=== PATIENT | male | born 1970 | race Caucasian/White ===

== ENCOUNTER 2016-06-14 07:45 | Emergency (ER) | payer OTHER ==
[~2016-06-14] VITALS: Ht 185.4 cm; Wt 83.9 kg
[~2016-06-14 07:45] MED LIST: IBUPROFEN800 MG ORAL; ONDANSETRON ODT4 MG ORAL; TAMIFLU75 MG ORAL; ZYRTEC10 MG ORAL
[2016-06-14] MEDS ORDERED: NKM (07:54)
[2016-06-14] MEDS ORDERED: IBUPROFEN800 MG ORAL (08:03)
[2016-06-14] MEDS ORDERED: TAMIFLU75 MG ORAL (08:03)
[2016-06-14 08:08] VITALS: BP 111/71
--- NOTE | 2016-06-14 08:08 | Emergency Room Report ---
History of Present Illness General Chief Complaint: Flu Like Symptoms Source: Patient Present Illness HPI 45YOM walk-in with 2 days of myalgias, body aches, sore throat. Didnt get flu vaccine this year. Multiple coworkers sick. Feels similar to flu like illness he had in 2012. Improved with Tamiflu then. Taking Dayquill/Nyquill with improvement. Doesnt smoke. No other medical problems. Allergies: Coded Allergies: No Known Allergies (Unverified , 01/13/13) Patient History Past Medical History: none Past Surgical History: none Pertinent Family History: none Social History: Denies: alcohol use, drug use, smoking Immunizations: UTD Reviewed Nursing Documentation: PMH: Agreed, PSxH: Agreed Nursing Documentation-PMH Past Medical History: No Stated History Review of Systems All Other Systems: negative except mentioned in HPI Physical Exam Vital Signs Date Time Temp Pulse Resp B/P Pulse Ox O2 Delivery O2 Flow Rate FiO2 06/14/16 07:48 99.9 96 16 104/68 96 Room Air Sp02 EP Interpretation: reviewed, normal General Appearance: normal inspection, well appearing, no apparent distress, alert, GCS 15, non-toxic Head: normocephalic, atraumatic Eyes: bilateral eye EOMI, bilateral eye PERRL ENT: normal ENT inspection, hearing grossly normal, normal voice, TMs + canals normal, uvula midline, moist mucus membranes Neck: normal inspection, full range of motion, supple, no meningismus, no bony tend Respiratory: normal inspection, lungs clear, normal breath sounds, no rhonchi, no respiratory distress, no retraction, no accessory muscle use, no wheezing, speaking full sentences Cardiovascular #1: regular rate, rhythm, no edema Gastrointestinal: normal inspection, normal bowel sounds, non tender, soft, no guarding, no hernia Genitourinary: no CVA tenderness Musculoskeletal: normal inspection, back normal, normal range of motion, Miesha' s Sign negative Neurologic: normal inspection, alert, oriented x3, responsive, territory manager III-XII nml as tested, motor strength/tone normal, speech normal Psychiatric: normal inspection, judgement/insight normal, mood/affect normal Skin: normal inspection, normal color, no rash Lymphatic: normal inspection Medical Decision Making Diagnostic Impression: Primary Impression: Influenza-like symptoms ER Course 45YOM with flu like illness/symptoms. VSS. Afebrile. Exam unremarkable for acute bacterial infection Rx Tamiflu, Rx Ibuprofen PMD followup DC home Last Vital Signs Date Time Temp Pulse Resp B/P Pulse Ox O2 Delivery O2 Flow Rate FiO2 06/14/16 07:58 92 18 Room Air 06/14/16 07:48 99.9 104/68 96 Status: improved Disposition: HOME, SELF-CARE Condition: Improved Scripts Ibuprofen* (MOTRIN*) 800 Mg Tablet 800 MG ORAL THREE TIMES A DAY, #30 TAB 0 Refills Prov: CLEVE RODRIGUEZ M.D. 06/14/16 Oseltamivir Phosphate (Tamiflu) 75 Mg Cap 75 MG ORAL TWICE A DAY, #10 CAP 0 Refills Prov: CLEVE RODRIGUEZ M.D. 06/14/16 Patient Instructions: Pharyngitis, Blvs-py-[id number] Additional Instructions: - Drink plenty of fluids - Take ALL the tamiflu as prescribed - Take ibuprofen up to 3x a day with food as needed for sore throat, body aches CLEVE RODRIGUEZ M.D. Jun 14, 2016 08:08
[2016-06-14 08:14] VITALS: BP 111/71
== END 2016-06-14 08:14 | disposition home or self-care (01) ==
LOC: EMR 08:08
DX: J11.1 Influenza due to unidentified influenza virus with other respiratory manifestations (principal)
CPT/HCPCS: 99284

== ENCOUNTER 2018-09-23 16:32 | Inpatient (IN) | payer OTHER ==
[~2018-09-23] VITALS: Ht 185.4 cm; Wt 83.9 kg
[~2018-09-23 16:32] MED LIST changes: +NKM
--- NOTE | 2018-09-23 16:40 | NUR ---
ED Nurse Note: Patient walked into ED c/o chest pain, burning , 09/04. patient reports he was recently diagnosed with thoracic aneurysm about 1 month ago, awaiting for cardiology refferal by primary doctor. patient is alert wake x4 ambulatory, breathing unlabored and even. patient placed on environmental monitoring specialist.
[2018-09-23] MEDS ORDERED: Isovue-370 150ml vial INJ PRN (16:45)
[2018-09-23 17:02] VITALS: BP 117/68
--- NOTE | 2018-09-23 17:44 | Diagnostic Imaging Report ---
Indication: Chest pain Technique: One view of the chest Comparison: 01/13/2013 Findings: Lungs and pleural spaces are clear. Heart size is normal. Impression: No acute process
--- NOTE | 2018-09-23 18:04 | Emergency Room Report ---
History of Present Illness General Chief Complaint: Chest Pain Source: Medical Record Present Illness HPI 48-year-old male history of thoracic aneurysm 4.5 cm, presents with burning chest pain x1 day, no aggravating or alleviating factors, he does have a history of GERD, he does endorse some nausea, the pain does not radiate to the back, it was gradual in onset, not sudden, no epigastric pain, no diarrhea. patient was worried his aneurysm may have gotten worse or if it burst, patient presents for evaluation. Severity is mild Allergies: Coded Allergies: No Known Allergies (Unverified , 01/13/13) Patient History Past Medical History: see triage record Reviewed Nursing Documentation: PMH: Agreed; PSxH: Agreed Nursing Documentation-PMH Past Medical History: No History, Except For Review of Systems Constitutional: Denies: chills, fever Eye: Denies: blurred vision, double vision ENT: Denies: throat pain, nasal discharge Respiratory: Denies: cough, shortness of breath Cardiovascular: Reports: chest pain; Denies: palpitations Gastrointestinal: Reports: nausea; Denies: abdominal pain, diarrhea, vomiting Genitourinary: Denies: dysuria, pain Musculoskeletal: Denies: back pain, muscle pain Skin: Denies: rash, lesions Neurological: Denies: headache, focal weakness Hematologic/Lymphatic: Denies: easy bleeding, easy bruising All Other Systems: negative except mentioned in HPI Physical Exam Vital Signs Date Time Temp Pulse Resp B/P (MAP) Pulse Ox O2 Delivery O2 Flow Rate FiO2 09/23/18 16:36 98.4 59 18 127/58 (81) 96 Room Air Sp02 EP Interpretation: reviewed, normal General Appearance: well appearing, no apparent distress, alert Head: normocephalic, atraumatic Eyes: bilateral eye PERRL, bilateral eye EOMI ENT: uvula midline, moist mucus membranes Neck: supple, thyroid normal, supple/symm/no masses Respiratory: lungs clear, no respiratory distress, no retraction, no accessory muscle use Cardiovascular #1: normal peripheral pulses, regular rate, rhythm, no edema, no gallop, no murmur Gastrointestinal: non tender, soft, no guarding, no rebound Musculoskeletal: normal inspection Neurologic: alert, oriented x3 Psychiatric: mood/affect normal Skin: no rash, warm/dry Medical Decision Making Diagnostic Impression: Primary Impression: Chest pain ER Course Patient presents with most likely GERD-like symptoms, however we will evaluate to see if his aneurysm has changed, patient is following up with a thoracic specialist to determine if he needs operative management or watchful waiting Aneurysm unchanged, will transfer patient for observation measurement if 4.3 cm no evidence of rupture Spoke with Dr. Gaines, is waiting for the results of the CTA, does not want to admit unless CTA is stable Reeval 7:54 PM Patient with no evidence of worsening aneurysm, could not reach Dr. Gaines Admitted to Dr. Anders for obs for acs rule out, low suspicion for involvement of aneurysm. Laboratory Tests Test 09/23/18 17:40 White Blood Count 5.3 K/UL (4.8-10.8) Red Blood Count 4.63 M/UL (4.70-6.10) L Hemoglobin 14.9 G/DL (14.2-18.0) Hematocrit 41.6 % (42.0-52.0) L Mean Corpuscular Volume 90 FL (80-99) Mean Corpuscular Hemoglobin 32.2 PG (27.0-31.0) H Mean Corpuscular Hemoglobin Concent 35.9 G/DL (32.0-36.0) Red Cell Distribution Width 10.5 % (11.6-14.8) L Platelet Count 178 K/UL (150-450) Mean Platelet Volume 6.9 FL (6.5-10.1) Neutrophils (%) (Auto) 57.3 % (45.0-75.0) Lymphocytes (%) (Auto) 31.1 % (20.0-45.0) Monocytes (%) (Auto) 5.4 % (1.0-10.0) Eosinophils (%) (Auto) 5.8 % (0.0-3.0) H Basophils (%) (Auto) 0.4 % (0.0-2.0) Prothrombin Time 10.1 SEC (9.30-11.50) Prothrombin Time INR 0.9 (0.9-1.1) PTT 27 SEC (23-33) Sodium Level 133 MMOL/L (136-145) L Potassium Level 3.6 MMOL/L (3.5-5.1) Chloride Level 100 MMOL/L (98-107) Carbon Dioxide Level 30 MMOL/L (21-32) Anion Gap 3 mmol/L (5-15) L Blood Urea Nitrogen 12 mg/dL (7-18) Creatinine 1.0 MG/DL (0.55-1.30) Estimate Glomerular Filtration Rate > 60 mL/min (>60) Glucose Level 90 MG/DL (74-106) Calcium Level 9.4 MG/DL (8.5-10.1) Total Bilirubin 0.6 MG/DL (0.2-1.0) Aspartate Amino Transferase (AST) 21 U/L (15-37) Alanine Aminotransferase (ALT) 15 U/L (12-78) Alkaline Phosphatase 35 U/L (46-116) L Total Creatine Kinase 83 U/L (26-308) Creatine Kinase MB 1.2 NG/ML (0.0-3.6) Creatine Kinase MB Relative Index 1.4 Troponin I 0.000 ng/mL (0.000-0.056) Pro-B-Type Natriuretic Peptide 33 pg/mL (0-125) Total Protein 7.7 G/DL (6.4-8.2) Albumin 4.4 G/DL (3.4-5.0) Globulin 3.3 g/dL Albumin/Globulin Ratio 1.3 (1.0-2.7) EKG Diagnostic Results EKG Time: 16:42 EP Interpretation: Sinus bradycardia, rate 56, QTc 418, no acute ST elevations , normal axis Rate: bradycardiac Rhythm: other - Sinus bradycardia ST Segments: no acute changes ASA given to the pt in ED: No Rhythm Strip Diag. Results Rhythm Strip Time: 18:22 EP Interpretation: yes Rate: 59 Rhythm: no PVC's, no ectopy, other - Sinus bradycardia Chest X-Ray Diagnostic Results Chest X-Ray Diagnostic Results : Chest X-Ray Ordered: Yes # of Views/Limited/Complete: 1 View Indication: Chest Pain EP Interpretation: Yes Interpretation: no acute cardiopulmonary disease Impression: No acute disease Electronically Signed by: Balbir Thakur MD CT/MRI/US Diagnostic Results CT/MRI/US Diagnostic Results : Impression CTA thoracic, read by Dr. STOKES NG: Mild fusiform dilatation of the ascending thoracic aorta measuring up to 4.3 cm no dissection Last Vital Signs Date Time Temp Pulse Resp B/P (MAP) Pulse Ox O2 Delivery O2 Flow Rate FiO2 09/23/18 17:02 98.4 58 18 117/68 100 Room Air Disposition: ADMITTED INPATIENT Condition: Stable Referrals: NON PHYSICIAN (PCP) Balbir Thakur MD Sep 23, 2018 18:04
[2018-09-23 18:06] LABS: BASOPHILS % (AUTO) 0.4 % (0.0-2.0); EOSINOPHILS % (AUTO) 5.8 % (0.0-3.0); HEMATOCRIT 41.6 % (42.0-52.0); HEMOGLOBIN 14.9 G/DL (14.2-18.0); LYMPHOCYTES % (AUTO) 31.1 % (20.0-45.0); MEAN CORPUSCULAR VOLUME 90 FL (80-99); MONOCYTES % (AUTO) 5.4 % (1.0-10.0); NEUTROPHILS % (AUTO) 57.3 % (45.0-75.0); PLATELET COUNT 178 K/UL (150-450); RED BLOOD COUNT 4.63 M/UL (4.70-6.10); RED CELL DISTRIBUTION WIDTH 10.5 % (11.6-14.8); WHITE BLOOD COUNT 5.3 K/UL (4.8-10.8)
[2018-09-23 18:09] LABS: INR 0.9 (0.9-1.1)
[2018-09-23 18:16] LABS: ANION GAP 3 mmol/L (5-15); BLOOD UREA NITROGEN 12 mg/dL (7-18); CALCIUM 9.4 MG/DL (8.5-10.1); CARBON DIOXIDE 30 MMOL/L (21-32); CHLORIDE 100 MMOL/L (98-107); POTASSIUM 3.6 MMOL/L (3.5-5.1); SODIUM 133 MMOL/L (136-145)
[2018-09-23 18:23] LABS: ALANINE AMINOTRANSFERASE 15 U/L (12-78); ALBUMIN 4.4 G/DL (3.4-5.0); ALBUMIN/GLOBULIN RATIO 1.3 (1.0-2.7); ALKALINE PHOSPHATASE 35 U/L (46-116); ASPARTATE AMINO TRANSFERASE 21 U/L (15-37); BILIRUBIN,TOTAL 0.6 MG/DL (0.2-1.0); CKMB 1.2 NG/ML (0.0-3.6); CREATINE KINASE 83 U/L (26-308)
[2018-09-23] MEDS: Mylanta II UD 30ml ORAL ONE ×2 (18:30→18:50)
[2018-09-23 19:05] VITALS: BP 132/65
--- NOTE | 2018-09-23 19:08 | NUR ---
HAND-OFF: Report given to Katelynn LANGSTON. visitor at bedside, stable, patient reports pain is bearable.
--- NOTE | 2018-09-23 19:20 | NUR ---
ED Nurse Note: Got report from IVIS Valencia. Patient is in the bed ressting, VSS at this time, AAO x4, skin is dry warm to touch, no acute disstress noticed.
[2018-09-23 21:50] VITALS: BP 132/65
--- NOTE | 2018-09-23 21:50 | NUR ---
ED Nurse Note: Patient was admited to Tele due to CP, patient has history of thoracic anurism. AAO x4, VSS at this time, skin is warm to touch. Patient was transfered to the unit via gurney, by MARIA ISABEL downing, with all belongings.
[2018-09-23 21:55] VITALS: BP 121/83
--- NOTE | 2018-09-23 21:55 | NUR ---
NURSE NOTES: Pt received from IVIS Pace alert and oriented x4 with no acute s/s of distress noted. IV site asymptomatic and patent on L ac 18g, saline lock. No wounds noted upon assessment. quality assurance monitor chassis on - Sinus Rhythm 62 HR. VSS stable - 121/83, 62, 97% on room air, 97.7 F, no pain. Belongings all with patient upon transfer - pt had 79$ of flor with him, per pt his partner Savage Lopez ([phone]) will bring home the flor for safe-keeping. Bed in lowest position, call light and belongings within reach. Left message for Dr. Chu regarding admission orders.
--- NOTE | 2018-09-23 22:10 | NUR ---
NURSE NOTES: Received admission orders from Dr. Chu. Will carry out orders.
--- NOTE | 2018-09-23 22:28 | NUR ---
NURSE NOTES: Received phone call from Saray of [facility] ([phone]) who stated that d/t patient's insurance his stay at [facility] will not be covered by his insurance and would therefore require that the patient be transferred to [facility] where his stay would be covered by insurance. Room number provided - [id number] - and phone number for report - [phone].
--- NOTE | 2018-09-23 22:32 | NUR ---
NURSE NOTES: Pt was informed of phone call from [facility] regarding inability to have stay at [facility] covered by insurance and would require transfer to [facility]. Per pt, he "would rather leave and go home against medical advice than be transferred to another facility and would not want to stay inpatient for observation if it's not covered by insurance." RN spoke with Dr. Chu and made aware.
--- NOTE | 2018-09-23 22:56 | NUR ---
AMA: Pt stated that he would rather go home and leave than to stay and be transferred to another facility. Pt was informed of risks of leaving and informed of his diagnosis, but pt stated that "I'm just going to follow up with my primary physician first thing tomorrow morning. I don't want to just keep going back and forth to different hospitals." Spoke with Dr. Chu who stated that it is patient's choice ultimately. IV site d/natali and AMA form signed by patient. Patient wristband removed. Pt left accompanied by partner Savage Lopez in stable condition with no acute s/s of distress. SEE AMA FORM.
--- NOTE | 2018-09-24 10:31 | Diagnostic Imaging Report ---
Indication: Chest and abdominal pain. History of aortic aneurysm Technique: Continuous helical transaxial imaging of the chest, abdomen and pelvis was obtained from the thoracic inlet to the pubic symphysis during rapid intravenous contrast administration. Arterial phase of enhancement obtained. Coronal 2-D reformats were also obtained and maximum intensity projection images in multiple planes. Study obtained in a Siemens sensation [address] Total Dose length Product (DLP): [address] Dose Index Volume (CTDIvol): 8.11 x 3, 18.03, 0.15 mGy Comparison: None Findings: Vascular findings: There is mild circumferential fusiform dilatation of the ascending thoracic aorta which has a maximum diameter of about 4.3 cm. There is no dissection. There is no significant arterial plaque or calcification present. The major vessels including the innominate artery, left common carotid artery and left subclavian arteries appear widely patent. The abdominal aorta appears normal. The celiac artery and superior mesenteric artery appear widely patent. There are 2 renal arteries on the right and 2 renal arteries on the left. These vessels appear widely patent. Inferior mesenteric artery is noted and appears patent. The common iliac, internal and external iliac arteries appear normal. Nonvascular findings: There is mild dependent phenomena within the lung bases with some reticular markings and groundglass opacification likely atelectasis. Lungs are clear otherwise. There is no adenopathy within the chest. The heart is unremarkable. Bilateral extrarenal pelvis noted. The ureters are normal size. This is a congenital finding normal variant. Gallbladder is grossly unremarkable. There is no free fluid. There is moderate retention of feces within the colon. IMPRESSION: Mild fusiform dilatation of the ascending thoracic aorta measuring up to 4.3 cm. Normal appearance of the aorta and major branches of the thoracic and abdominal aorta demonstrated. No evidence of dissection. Other incidental findings as above. The CT scanner at [facility] is accredited by the [employer] and the scans are performed using dose optimization techniques as appropriate to a performed exam including Automatic Exposure control.
--- NOTE | 2018-09-24 10:39 | Discharge Summary ---
Discharge Summary Discharge Summary _ DATE OF ADMISSION: 09/23/2018 DATE OF DISCHARGE: 09/23/2018 Patient left AGAINST MEDICAL ADVICE REASON FOR ADMISSION: 48 years old male with history of thoracic aneurysm 4.5 cm, GERD, presented with burning chest pain for 1 day. Patient reported associated nausea. Chest pain did not radiate to the back. It was gradual in onset, not sudden. He denied epigastric pain. No diarrhea. Upon evaluation vital signs were stable. Laboratory work-up revealed no leukocytosis, stable hemoglobin and hematocrit. Sodium 133. Stable other electrolytes and renal parameters. Glucose 90. Stable LFT. Troponin negative. Pro BNP 33. EKG revealed sinus bradycardia with heart rate of 59 , no acute ischemic changes. Chest x-ray revealed no acute cardiopulmonary pathology. Patient also undergone CT of the chest, abdomen , and pelvis , which revealed mild fusiform dilatation of the ascending thoracic aorta, measuring up to 4.3 cm. Normal appearance of the aorta and major branches of the thoracic and abdominal aorta demonstrated. No evidence of dissection. Patient admitted for observation to telemetry floor to rule out acute coronary syndrome. HOSPITAL COURSE: Patient admitted to telemetry floor. Patient stated he felt better , as far as he knows that there was no evidence of dissection. Patient decided to go home and follow-up with his primary care provider in the morning. The risks and consequences of signing AGAINST MEDICAL ADVICE were discussed with patient in detail. Patient verbalized understanding, nevertheless signed AMA form and left. FINAL DIAGNOSES: Chest pain. rule out acute coronary syndrome Thoracic aortic aneurysm-stable , no evidence of dissection I have been assigned to dictate discharge summary for this account. I was not involved in the patient's management. Missy Otto NP Sep 24, 2018 10:39
--- NOTE | 2018-09-24 18:15 | History and Physical Report ---
DATE OF ADMISSION: 09/23/2018 HISTORY OF PRESENT ILLNESS: This is a 48-year-old male with previous history of thoracic aortic aneurysm. He came to hospital with epigastric discomfort. The patient was seen and worked up in the ER. He underwent imaging studies, which showed there was no change in the aortic aneurysm. The patient reported nausea. He also has history of GERD. He was admitted to the hospital for observation. PAST MEDICAL HISTORY: Notable for known thoracic aortic aneurysm. No other previous medical history noted expect for GERD. MEDICATIONS: Home medications none. ALLERGIES: None. SURGERIES: None. SOCIAL HISTORY: No history of alcohol, tobacco, or drug use. REVIEW OF SYSTEMS: Denies any headaches, hematemesis, melena, hematochezia, night sweats, or weight loss. PHYSICAL EXAMINATION: GENERAL: Reveals a 48-year-old male. VITAL SIGNS: Blood pressure is 120/80, heart rate 64, respiratory rate 18. He is afebrile. HEENT: Unremarkable. CHEST: Clear breath sounds bilaterally with normal heart sounds. ABDOMEN: Soft NEUROLOGIC: Nonfocal. ABDOMEN: Soft. NEUROLOGIC: Nonfocal. LABORATORY AND DIAGNOSTIC DATA: Imaging studies as discussed above. He underwent a CT, which was negative. X-ray of the chest is unremarkable. The patient had a CT examination, which was unchanged. Laboratory testing as discussed above is unremarkable. EKG, normal sinus rhythm, heart rate 59. IMPRESSION: 1. Dilatation of the ascending thoracic aorta 4.8 cm. 2. Epigastric discomfort, GI. DISCUSSION: Admitted to the hospital for observation. Discussed with the patient. Discussed with the ER physician. We will follow. Stephan Chu M.D. DR: Yoni JOB#: [id number] CC:
== END 2018-09-23 22:54 | disposition left against medical advice (07) | DRG 311 ==
LOC: EMR 17:30 → 2E 20:36 → EDBEDREQ 21:13 → 2E 22:41
DX: I24.9 Acute ischemic heart disease, unspecified (principal); I71.2 Thoracic aortic aneurysm, without rupture; K21.9 Gastro-esophageal reflux disease without esophagitis
CPT/HCPCS: 36415; 71045; 71275; 74174; 80053; 82550; 82553; 83880; 84484; 85025; 85610; 85730; 86850; 86900; 86901; 93005; 99285; J2405